=== PATIENT | female | born 1965 | race Asian ===

== ENCOUNTER → 2018-10-19 | Outpatient (CLI) | payer OTHER | LOC: CIMAGING 07:16 | PROVIDERS: ATTEND Family Medicine | DX: N94.9 Unspecified condition associated with female genital organs and menstrual cycle (principal); R10.9 Unspecified abdominal pain; R19.03 Right lower quadrant abdominal swelling, mass and lump; K76.89 Other specified diseases of liver; Z78.0 Asymptomatic menopausal state; N83.201 Unspecified ovarian cyst, right side | CPT/HCPCS: 76700-PO; 76856-PO ==

== ENCOUNTER 2019-01-09 09:04 | Day surgery (SDC) | payer OTHER | END 2019-01-09 16:30 | disposition home or self-care (01) | LOC: FSGY 09:04 ==